=== PATIENT | male | born 1985 | race Hispanic/Latino ===

== ENCOUNTER 2023-06-18 12:12 | Inpatient (IN) | payer SELFPAY ==
[2023-06-18] VITALS (25 sets, daily range): BP systolic 107–145; BP diastolic 68–128
[~2023-06-18] VITALS: Ht 160 cm; Wt 72.0 kg
--- NOTE | 2023-06-18 12:18 | NUR ---
PATIENT TO ROOM 12 VIA EMS
--- NOTE | 2023-06-18 12:20 | NUR ---
PT'S CIWA SCORE IS 30. PT IS SEVERELY WITHDRAWING
[2023-06-18 12:59] LABS: BASO% 0.5 % (0-3); EOS% 0.2 % (0-8); IMMATURE GRANULOCYTES 0.3 % (0.0-5.0); MEAN CELL VOLUME 86.5 fL CALC (80.0-100.0); MEAN CORPUSCULAR HGB 31.3 pG CALC (26.0-32.0); MEAN CORPUSCULAR HGB CONC 36.1 g/dL CAL (32.0-36.0); MONO% 11.4 % (2-13); NEUT# 4.72 thou/uL (1.82-7.42); NEUT% 74.6 % (42-76); RED BLOOD COUNT 4.16 mill/uL (4.70-6.10); RED CELL DISTRI WIDTH 12.4 % (11.5-15.5)
[2023-06-18 13:08] LABS: ALBUMIN 4.4 g/dL (3.2-5.0); ALKALINE PHOSPHATASE 81 u/l (38-126); ANION GAP 16 (6-22 (CALC)); BILIRUBIN, TOTAL 0.9 mg/dL (0.2-1.3); BUN 10 mg/dL (9-20); BUN/CREATININE RATIO 21 (12-20 (CALC)); CARBON DIOXIDE 23 mmol/l (22-30); CHLORIDE 99 mmol/l (95-108); CREATININE 0.5 mg/dL (0.7-1.3); ETHYL ALCOHOL 0 mg/dl (0-30); GFR FOR AFR.AMER. > 60 ML/MIN (>=60 (CALC)); GFR OTHER RACES > 60 ML/MIN (>=60 (CALC)); LIPASE 119 u/l (23-300); MAGNESIUM 1.5 mg/dL (1.6-2.3); POTASSIUM 2.8 mmol/l (3.5-5.1); SGOT/AST 90 u/l (17-59); SODIUM 135 mmol/l (137-146); TOTAL PROTEIN 7.4 g/dL (6.3-8.2)
--- NOTE | 2023-06-18 14:25 | NUR ---
ASSIST PROVIDER WITH LUMBAR PUNCTURE. SPECIMEN COLLECTED AND SENT TO LAB. PT TOLERATED LP WELL. PT IS IN SUPINE POSITION.
--- NOTE | 2023-06-18 16:27 | NUR ---
ATTEMPT TO CALL PATIENT REPORT TO ICU, NURSE UNAVAILABLE AT THIS TIME TO RETURN CALL.
[2023-06-18 16:49] LABS: URINE BILIRUBIN - DIPSTICK Negative (NEGATIVE); URINE BLOOD DIPSTICK Negative (NEGATIVE); URINE GLUCOSE - DIPSTICK Negative (NEGATIVE); URINE KETONE Negative (NEGATIVE); URINE LEUK ESTERASE Negative (NEGATIVE); URINE NITRITE - DIPSTICK Negative (Negative); URINE PROTEIN - DIPSTICK Negative (NEG-TRACE); URINE SPECIFIC GRAVITY 1.015
[2023-06-18 16:50] LABS: URINE COLOR Yellow
--- NOTE | 2023-06-18 16:51 | NUR ---
RETURN CALL TO NURSE REMAINS UNAVAILABLE
--- NOTE | 2023-06-18 17:02 | NUR ---
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
--- NOTE | 2023-06-18 17:46 | NUR ---
ICU NURSE CALLED FOR PATIENT REPORT.
--- NOTE | 2023-06-18 17:56 | NUR ---
PATIENT ARRIVED TO THE UNIT VIA STRETCHER ACCOMPAINED BY ER STAFF. PATIENT ALERT AND ORIENTED X 3. DENIES PAIN AT THIS TIME. CIWA SCORE OF 6. AFEBRILE. NO APPARENT DISTRESS NOTED. BED IN LOW POSITION. CALL LIGHT RESTING NEXT TO L HAND. WILL CONTINUE WITH PLAN OF CARE.
--- NOTE | 2023-06-18 20:07 | NUR ---
PT RESTING IN BED, NO SIGNS OF DISTRESS NOTED, RESP EVEN AND UNLABORED.PT ALERT AND ORIENTED X3. DISCUSSED POC, PT VERBALIZED UNDERSTANDING, AGREES WITH POC. URINAL EMPTIED OF CLEAR YELLOW URINE. ASSISTED PT TO BSC FOR BM. SKIN INTACT. INITIATED IVF, PT VISIBLY SWEATY, AND NOTED TREMORS WITH ARMS EXTENDED. CIWA SCORE OF 9. PLAN OF CARE ONGOING, NO COMPLAINTS AT THIS TIME. CALL LIGHT IN REACH,CONTINUE TO MONITOR.
--- NOTE | 2023-06-18 21:30 | NUR ---
CMP OBTAINED, SPECIMEN SENT TO LAB, VOICES NO NEEDS OR COMPLAINTS AT THIS TIME, CALL LIGHT IN REACH, PLAN OF CARE ONGOING.
[2023-06-18 21:56] LABS: ALKALINE PHOSPHATASE 68 u/l (38-126); ANION GAP 13 (6-22 (CALC)); BILIRUBIN, TOTAL 0.8 mg/dL (0.2-1.3); BUN 5 mg/dL (9-20); BUN/CREATININE RATIO 11 (12-20 (CALC)); CARBON DIOXIDE 20 mmol/l (22-30); CHLORIDE 106 mmol/l (95-108); CREATININE 0.5 mg/dL (0.7-1.3); GFR FOR AFR.AMER. > 60 ML/MIN (>=60 (CALC)); GFR OTHER RACES > 60 ML/MIN (>=60 (CALC)); SGOT/AST 91 u/l (17-59); SODIUM 136 mmol/l (137-146); TOTAL PROTEIN 6.8 g/dL (6.3-8.2)
[2023-06-18 22:46] LABS: POTASSIUM 3.4 mmol/l (3.5-5.1)
--- NOTE | 2023-06-18 22:55 | NUR ---
DISCUSSED IV POTASSIUM INFUSING WITH PT,VERBALIZED UNDERSTANDING AND AGREES WITH PLAN. NO SIGNS OF DISTRESS NOTED, RESP EVEN AND UNLABORED. CALL LIGHT IN REACH.
[2023-06-19] VITALS (9 sets, daily range): BP systolic 107–143; BP diastolic 64–101
--- NOTE | 2023-06-19 00:10 | NUR ---
PT RESTING IN BED WATCHING TV, NO SIGNS OF DISTRESS NOTED, RESP EVEN AND UNLABORED. DISCUSSED IV ACYCLOVIR, PT IN AGREEMENT WITH PLAN, INITIATED INFUSION, TO LAC, TOLERATING WELL. DENIES ANY NEEDS OR COMPLAINTS AT THIS TIME. CALL LIGHT IN REACH,CONTINUE TO MONITOR.
--- NOTE | 2023-06-19 01:37 | NUR ---
NOTED HR ELEVATING,PT FOUND SITTING ON SIDE OF BED, PT YELLING AT REFLECTION IN WINDOW IN AGGRESSIVE TONE, PT PULLING ON LINES AND IV TUBING. ASSISTED PT BACK TO BED, HR 95. PT DISORIENTED TO PLACE, BED ALARM SET, CIWA NOW 20. WILL MEDICATE WITH PRN LIBRIUM. CALL LIGHT IN REACH.
[2023-06-19 01:43] LABS: ALBUMIN 4.3 g/dL (3.2-5.0); ALKALINE PHOSPHATASE 73 u/l (38-126); ANION GAP 14 (6-22 (CALC)); BILIRUBIN, TOTAL 0.9 mg/dL (0.2-1.3); BUN 4 mg/dL (9-20); BUN/CREATININE RATIO 10 (12-20 (CALC)); CARBON DIOXIDE 21 mmol/l (22-30); CHLORIDE 106 mmol/l (95-108); CREATININE 0.4 mg/dL (0.7-1.3); GFR FOR AFR.AMER. > 60 ML/MIN (>=60 (CALC)); GFR OTHER RACES > 60 ML/MIN (>=60 (CALC)); POTASSIUM 3.5 mmol/l (3.5-5.1); SGOT/AST 84 u/l (17-59); SODIUM 137 mmol/l (137-146); TOTAL PROTEIN 7.4 g/dL (6.3-8.2)
--- NOTE | 2023-06-19 02:59 | NUR ---
PT GETTING OUT OF BED, PT ASKING FOR HIS SHOES. PT DISORIENTED, REORIENTED TO SURROUNDINGS. PT SPEAKING TO SOMEONE IN THE ROOM, STATES THERE ARE 3 MEN IN HIS ROOM. ATTEMPTED TO INFORM PT THAT THERE IS NO ONE IN HIS ROOM, PT DOES NOT AGREE. BED ALARM IN PLACE FOR SAFETY, CALL LIGHT IN REACH, PLAN OF CARE ONGOING.
--- NOTE | 2023-06-19 03:53 | NUR ---
PT INCREASING AGITATED, PT REMOVED IV TO RAC, CATHETER INTACT. PT ASSISTED TO RECLINER TO CHANGE BED LINENS. NEW GOWN PROVIDED, PT VOIDED A LARGE AMOUNT OF URINE IN BSC. PT LAUGHING STATES THAT THE PERSON IN THE ROOM WITH HIM IS DRUNK AND FALLING OVER. PT IS DISORIENTED, ATTEMPTED TO ORIENT PT, ASSISTED PT IN BED, BED ALARM IN PLACE, MONITOR REPLACED. MEDICATED PER AUG. CALL LIGHT IN REACH, POC ONGOING.
[2023-06-19 05:32] LABS: BASO% 0.2 % (0-3); HEMATOCRIT 32.2 % (39.0-50.0); HEMOGLOBIN 11.6 g/dl (14.0-18.0); IMMATURE GRANULOCYTES 0.2 % (0.0-5.0); LYMPH% 14.6 % (15-41); MEAN CELL VOLUME 88.7 fL CALC (80.0-100.0); MONO% 7.1 % (2-13); NEUT# 4.04 thou/uL (1.82-7.42); NEUT% 77.9 % (42-76); RED BLOOD COUNT 3.63 mill/uL (4.70-6.10); RED CELL DISTRI WIDTH 12.9 % (11.5-15.5)
[2023-06-19 06:34] LABS: ANION GAP 14 (6-22 (CALC)); BUN 4 mg/dL (9-20); BUN/CREATININE RATIO 11 (12-20 (CALC)); CARBON DIOXIDE 21 mmol/l (22-30); CHLORIDE 105 mmol/l (95-108); CREATININE 0.4 mg/dL (0.7-1.3); GFR FOR AFR.AMER. > 60 ML/MIN (>=60 (CALC)); GFR OTHER RACES > 60 ML/MIN (>=60 (CALC)); MAGNESIUM 1.7 mg/dL (1.6-2.3); SODIUM 137 mmol/l (137-146)
--- NOTE | 2023-06-19 07:00 | NUR ---
REPORT RECEIVED FROM OFF GOING NURSE.
--- NOTE | 2023-06-19 07:35 | NUR ---
PATIENT SITTING UP IN BED RESTING CALMLY, WATCHING TV. SITTER AT BEDSIDE DENIES PAIN AT THIS TIME. ALERT AND ORIENTED X 3. AFEBRILE. SKIN WARM/MOIST TO TOUCH. PERIPHERAL/PEDAL PULSES STRONG. PATIENT DENIES/SHOWS NO SIGNS VISIONS/HALLUCINATIONS AT THIS TIME. MODERATE TREMORS NOTED. LUNGS CLEAR TO ASCULTATION. BREATHING EVEN AND UNLABORED ON ROOM AIR. ST ON THE MONITOR. BOWEL SOUNDS HYPERACTIVE. NO APPARENT DISTRESS NOTED. WILL CONTINUE WITH PLAN OF CARE.
--- NOTE | 2023-06-19 10:05 | NUR ---
PATIENT SITTING UP IN BED TALKING ON THE PHONE. SITTER AT BEDSIDE. DENIES PAIN AT THIS TIME. NO APPARENT DISTRESS NOTED. WILL CONTINUE WITH PLAN OF CARE
--- NOTE | 2023-06-19 12:00 | NUR ---
PATIENT SITTING UP IN BED RESTING. SITTER AT BEDSIDE. NO APPARENT DISTRESS NOTED. WILL CONTINUE WITH PLAN OF CARE.
--- NOTE | 2023-06-19 13:03 | NUR ---
PATIENT REFUSING CHECKER AT THIS TIME.
--- NOTE | 2023-06-19 13:21 | NUR ---
S: INOCENCIOFELA is a 38 M who presents possible meningitis. He has a history of alcohol use. All medications in patient's chart were reviewed. O: VS: BP 107/71, P 107, RR 18, T 97.9 W 72 kg, HT 63 in, Scr=0.4, CrCl= 148.5 ml/min A: Blood culture is pending. CSF culture is pending. P: Patient is on ceftriaxone 2 g IV q12h and acyclovir 720 mg IV q8h. Vancomycin ordered for pharmacy to dose. Start Vancomycin 1250 mg IV Q12H. Vancomycin trough is drawn before the 4th dose on 06/20/23@1330. Vancomycin goal trough is between 15-20 mcg/ml. Pharmacy will follow and or advise on antibiotics use as needed.
--- NOTE | 2023-06-19 14:39 | NUR ---
Patient decides to leave AMA. Multiple attempts made to ecourage patient to remain here for continued treatment. Explained to patient all risks of leaving against medical advice including . Pt verbalized understanding of all risks. Pt also encouraged to return to [facility] at any time, especially if symptoms continue or become worse. Pt verbalized understanding. PATIENT TAKEN DOWN TO ER WAITING ROOM VIA WC ACCOMPAINED BY STAFF TO WAITING CAB.
== END 2023-06-19 14:39 | disposition left against medical advice (07) | DRG 871 ==
LOC: ED 12:12 → ED-I 15:20 → ED 15:40 → ICU 15:41
PROVIDERS: Family Medicine; ADMIT Student in an Organized Health Care Education/Training Program; ATTEND Student in an Organized Health Care Education/Training Program
PROC: 009U3ZX Drainage of Spinal Canal, Percutaneous Approach, Diagnostic (ICD-10-PCS; principal; 2023-06-18)
DX: A41.9 Sepsis, unspecified organism (principal); G03.9 Meningitis, unspecified; F10.932 Alcohol use, unspecified with withdrawal with perceptual disturbance; R65.20 Severe sepsis without septic shock; E87.5 Hyperkalemia; E83.42 Hypomagnesemia; Z20.822 Contact with and (suspected) exposure to COVID-19
CPT/HCPCS: J0133; J1650; J3370; J3475

== ENCOUNTER 2024-01-13 21:19 | Emergency (ER) | payer SELFPAY ==
[~2024-01-13] VITALS: Ht 160 cm; Wt 81.0 kg
[2024-01-13 21:25] VITALS: BP 145/95
[2024-01-13 21:30] VITALS: BP 157/94
[2024-01-13] MEDS ORDERED: SODIUM CHLORIDE 0.9% 1,000 ML IV STA (21:31)
[2024-01-13] MEDS ORDERED: KETOROLAC TROMETHAMINE 30 MG/ML SDV IV ONE (21:35)
[2024-01-13] MEDS ORDERED: THIAMINE HCL 100 MG/ML 2ML VIAL IV ONE (21:35)
[2024-01-13 22:00] VITALS: BP 124/83
[2024-01-13 22:03] LABS: BASO% 0.5 % (0-3); HEMATOCRIT 37.4 % (39.0-50.0); HEMOGLOBIN 12.9 g/dl (14.0-18.0); IMMATURE GRANULOCYTES 0.5 % (0.0-5.0); LYMPH% 15.8 % (15-41); MEAN CORPUSCULAR HGB 28.3 pG CALC (26.0-32.0); MEAN CORPUSCULAR HGB CONC 34.5 g/dL CAL (32.0-36.0); MONO% 9.4 % (2-13); NEUT# 4.26 thou/uL (1.82-7.42); NEUT% 73.8 % (42-76); RED BLOOD COUNT 4.56 mill/uL (4.70-6.10); RED CELL DISTRI WIDTH 13.3 % (11.5-15.5)
[2024-01-13 22:05] LABS: URINE BILIRUBIN - DIPSTICK Negative (NEGATIVE); URINE BLOOD DIPSTICK Trace-intact (NEGATIVE); URINE GLUCOSE - DIPSTICK Negative (NEGATIVE); URINE KETONE Negative (NEGATIVE); URINE LEUK ESTERASE Negative (NEGATIVE); URINE NITRITE - DIPSTICK Negative (Negative); URINE PH 6.5 (4.5-8.0); URINE PROTEIN - DIPSTICK Negative (NEG-TRACE); URINE SPECIFIC GRAVITY <=1.005; URINE UROBILINOGEN - DIPSTICK 0.2 E.U./dL (0.2)
[2024-01-13 22:06] LABS: URINE COLOR Yellow
[2024-01-13 22:21] LABS: ALBUMIN 4.3 g/dL (3.2-5.0); BILIRUBIN, TOTAL 0.8 mg/dL (0.2-1.3); CREATININE 0.5 mg/dL (0.7-1.3); MAGNESIUM 1.8 mg/dL (1.6-2.3); POTASSIUM 3.3 mmol/l (3.5-5.1); TOTAL PROTEIN 7.2 g/dL (6.3-8.2)
[2024-01-13 22:30] VITALS: BP 120/72
[2024-01-13 23:00] VITALS: BP 121/79
[2024-01-13 23:30] VITALS: BP 117/70
[2024-01-14] VITALS: BP 118/79
[2024-01-14] MEDS ORDERED: MAGNESIUM CITRATE 296 ML/BTL PO ONE (00:05)
[2024-01-14] MEDS ORDERED: Polyethylene Glycol 3350 17 GM/PKT PO ONE (00:05)
[2024-01-14 00:25] VITALS: BP 118/79
== END 2024-01-14 00:25 | disposition home or self-care (01) | DRG 392 ==
LOC: ED 21:19
PROVIDERS: Family Medicine
DX: K59.00 Constipation, unspecified (principal); F10.10 Alcohol abuse, uncomplicated

== ENCOUNTER 2024-06-10 12:09 | Emergency (ER) | payer SELFPAY ==
[~2024-06-10] VITALS: Ht 160 cm; Wt 68.0 kg
[2024-06-10 12:30] VITALS: BP 106/76
[2024-06-10] MEDS ORDERED: Diph, Acellular Pertussis, Tet 0.5 ML/VIAL (Tdap) SDV IM ONE (12:35)
[2024-06-10] MEDS ORDERED: ONDANSETRON HCl 4 MG/2 ML SDV IV ONE (12:35)
[2024-06-10] MEDS ORDERED: SODIUM CHLORIDE 0.9% 1,000 ML IV ONE (12:35)
== END 2024-06-10 12:30 | disposition left against medical advice (07) | DRG 951 ==
LOC: ED 12:09 → LWOBS 12:29
DX: Z53.21 Procedure and treatment not carried out due to patient leaving prior to being seen by health care provider (principal)

== ENCOUNTER 2024-07-15 09:35 | Emergency (ER) | payer SELFPAY ==
[~2024-07-15] VITALS: Ht 160 cm; Wt 79.8 kg
[2024-07-15 09:51] VITALS: BP 136/84
[2024-07-15 10:00] VITALS: BP 139/95
[2024-07-15] MEDS ORDERED: LIDOcaine HCl 1% (Local Anesth.) 20 ML VIAL IM STA (10:02)
[2024-07-15] MEDS ORDERED: DOXYCYCLINE100 MG PO (10:03)
[2024-07-15] MEDS ORDERED: cefTRIAXone SODIUM 1 GM/VIAL SDV IM ONE (10:05)
[2024-07-15 10:16] VITALS: BP 128/82
[2024-07-15 10:33] VITALS: BP 126/101
[2024-07-15 10:33] LABS: URINE BILIRUBIN - DIPSTICK Negative (NEGATIVE); URINE BLOOD DIPSTICK Negative (NEGATIVE); URINE GLUCOSE - DIPSTICK Negative (NEGATIVE); URINE KETONE Negative (NEGATIVE); URINE LEUK ESTERASE Negative (NEGATIVE); URINE NITRITE - DIPSTICK Negative (Negative); URINE PH 7.5 (4.5-8.0); URINE PROTEIN - DIPSTICK 30 mg/dL (NEG-TRACE); URINE UROBILINOGEN - DIPSTICK 0.2 E.U./dL (0.2)
[2024-07-15 10:34] LABS: URINE COLOR Yellow; URINE EPITHELIAL CELLS FEW EPI/hpf (0-FEW); URINE MUCUS MODERATE hpf (NONE-FEW)
[2024-07-15] MEDS ORDERED: METRONIDAZOLE500 MG PO (10:52)
[2024-07-15 11:00] VITALS: BP 126/101
== END 2024-07-15 11:05 | disposition home or self-care (01) | DRG 728 ==
LOC: ED 09:35
PROVIDERS: Family Medicine
DX: A64 Unspecified sexually transmitted disease (principal)
CPT/HCPCS: J0696